=== PATIENT | female | born 1970 | race African-American/Black ===

== ENCOUNTER 2016-12-22 13:39 | Emergency (ER) | payer OTHER ==
[~2016-12-22] VITALS: Ht 154.9 cm; Wt 88.6 kg
[~2016-12-22 13:39] MED LIST: PRILOTC
[2016-12-22 13:45] VITALS: TEMP 98.7
[2016-12-22] MEDS ORDERED: [UNRECOGNIZED DRUG - REMARK] (13:45)
[2016-12-22 14:23] LABS: COLLECTION METHOD CLEAN CATCH
[2016-12-22 14:30] LABS: BASO % 0.3 % (0.0-2.0); EOS # 0.1 (0.0-0.7); EOS % 0.5 % (0-4.0); GRAN # 6.5 (1.4-6.5); HEMATOCRIT 40.4 % (37.0-47.0); HEMOGLOBIN 13.8 g/dl (12.5-16.0); LYMPH # 2.9 (1.2-3.4); LYMPH % 28.8 % (20.0-51.0); MEAN CELL VOLUME 89 fl (80.0-100.0); MEAN CORPUSCULAR HEMOGLOBIN 30 pg (27.0-31.0); MEAN CORPUSCULAR HGB CONC 34 g/dl (33.0-37.0); MEAN PLATELET VOLUME 10.5 fl (7.4-10.4); MONO # 0.5 (0.1-0.6); PLATELET COUNT 252 K/mm3 (130-400); RED BLOOD COUNT 4.56 M/mm3 (4.10-5.30)
[2016-12-22 14:34] LABS: PH 5 (5-8); SQUAMOUS EPITHELIAL 0-2 /hpf; URINE APPEARANCE Clear; URINE BACTERIA Rare /hpf; URINE BILIRUBIN Negative (NEGATIVE); URINE BLOOD Negative (NEGATIVE); URINE COLOR Straw; URINE GLUCOSE Negative (NEGATIVE); URINE KETONE Negative (NEGATIVE); URINE LEUKOCYTE ESTERASE Negative (NEGATIVE); URINE PROTEIN(semi-quant) Negative (NEGATIVE); URINE RBC None Seen /hpf; URINE UROBILINOGEN Negative (NEGATIVE); URINE WBC 0-2 /hpf
[2016-12-22 14:47] LABS: ADJUSTED CALCIUM 9.4 mg/dL (8.4-10.2); ALANINE AMINOTRANSFERASE 31 U/L (9-52); ALBUMIN 4.5 gm/dL (3.5-5.0); ALKALINE PHOSPHATASE 78 U/L (50-136); ANION GAP 12 mmol/L (7-16); BILIRUBIN,TOTAL 1.2 mg/dL (0.0-1.0); BLOOD UREA NITROGEN 12 mg/dL (7-17); CALCIUM 9.8 mg/dL (8.4-10.2); CARBON DIOXIDE 21 mmol/L (22-30); CHLORIDE 106 mmol/L (98-107); CREATININE, serum 0.61 mg/dL (0.52-1.25); GLUCOSE 108 mg/dL (74-106); LIPASE 69 U/L (23-300); POTASSIUM 3.8 mmol/L (3.4-5.0); SODIUM 139 mmol/L (137-145); TOTAL PROTEIN 8.4 gm/dL (6.4-8.2)
[2016-12-22 14:58] LABS: TROPONIN-I < 0.012 ng/mL (0.000-0.034)
[2016-12-22] MEDS ORDERED: BENTYL 20MG20 MG/TAB PO (15:44)
[2016-12-22 15:48] VITALS: BP 130/87; PULSE 79
== END 2016-12-22 16:03 | disposition home or self-care (01) ==
LOC: COL.ER 13:39
PROVIDERS: Emergency Medicine
DX: R10.84 Generalized abdominal pain (principal); K21.9 Gastro-esophageal reflux disease without esophagitis; K58.9 Irritable bowel syndrome, unspecified; Z90.711 Acquired absence of uterus with remaining cervical stump
CPT/HCPCS: J0500

== ENCOUNTER 2018-09-07 19:07 | Emergency (ER) | payer BC ==
[~2018-09-07] VITALS: Ht 154.9 cm; Wt 92.3 kg
[~2018-09-07 19:07] MED LIST changes: +BENTYL 20MG20 MG/TAB PO; +[UNRECOGNIZED DRUG - REMARK]
[2018-09-07 19:10] VITALS: TEMP 98
[2018-09-07 20:39] LABS: BASO % 0.1 % (0.0-2.0); EOS # 0.1 (0.0-0.7); EOS % 1.4 % (0-4.0); GRAN # 3.6 (1.4-6.5); GRAN % 50.2 % (42.2-75.2); HEMOGLOBIN 12.6 g/dl (12.5-16.0); LYMPH % 41.3 % (20.0-51.0); MEAN CELL VOLUME 91 fl (80.0-100.0); MEAN CORPUSCULAR HEMOGLOBIN 30 pg (27.0-31.0); MEAN CORPUSCULAR HGB CONC 33 g/dl (33.0-37.0); MONO # 0.5 (0.1-0.6); MONO % 6.9 % (1.7-9.3); PLATELET COUNT 205 K/mm3 (130-400); REDCELL DISTRIBUTION WIDTH-CV 13.2 % (11.5-14.5)
[2018-09-07 21:09] LABS: ALBUMIN 4.1 gm/dL (3.5-5.0); BILIRUBIN,TOTAL 0.5 mg/dL (0.0-1.0); CALCIUM 9.4 mg/dL (8.4-10.2); CREATININE, serum 0.67 (0.52-1.25); POTASSIUM 4.5 mmol/L (3.4-5.0); TOTAL PROTEIN 7.8 gm/dL (6.4-8.2)
[2018-09-07 22:30] VITALS: BP 126/85; PULSE 79
== END 2018-09-07 22:30 | disposition home or self-care (01) ==
LOC: COL.ER 19:07
PROVIDERS: Emergency Medicine
DX: M79.661 Pain in right lower leg (principal)

== ENCOUNTER → 2019-08-06 | Outpatient (CLI) | payer OTHER | LOC: MC.RAD 07:53 | DX: N63.20 Unspecified lump in the left breast, unspecified quadrant (principal) | CPT/HCPCS: G0279 ==

== ENCOUNTER → 2020-08-06 | Outpatient (CLI) | payer OTHER | LOC: MC.RAD 08:12 | DX: Z12.31 Encounter for screening mammogram for malignant neoplasm of breast (principal) ==

== ENCOUNTER 2021-04-06 15:25 | Emergency (ER) | payer OTHER ==
[~2021-04-06] VITALS: Ht 154.9 cm; Wt 92.6 kg
[2021-04-06 16:07] VITALS: TEMP 98.5
[2021-04-06 18:03] LABS: BASO % 0.5 % (0.0-2.0); EOS # 0.1 K/mm3 (0.0-0.7); EOS % 0.6 % (0.0-4.0); GRAN # 4.5 K/mm3 (1.4-6.5); GRAN % 55.7 % (42.2-75.2); HEMATOCRIT 40.6 % (37.0-47.0); HEMOGLOBIN 13.5 g/dl (12.5-16.0); LYMPH # 3.1 K/mm3 (1.2-3.4); LYMPH % 38.4 % (20.0-51.0); MEAN CELL VOLUME 89 fl (80.0-100.0); MEAN CORPUSCULAR HEMOGLOBIN 30 pg (27-31); MEAN CORPUSCULAR HGB CONC 33 g/dl (33.0-37.0); MEAN PLATELET VOLUME 10.9 fl (7.4-10.4); MONO # 0.4 K/mm3 (0.1-0.6); MONO % 4.6 % (1.7-9.3); PLATELET COUNT 229 K/mm3 (130-400); RED BLOOD COUNT 4.55 M/mm3 (4.10-5.30); REDCELL DISTRIBUTION WIDTH-CV 12.9 % (11.5-14.5)
[2021-04-06 18:20] LABS: ALANINE AMINOTRANSFERASE 20 U/L (0-55); ALBUMIN 4.2 gm/dL (3.5-5.0); ALKALINE PHOSPHATASE 83 U/L (40-150); ANION GAP 12 mmol/L (7-16); AST,SGOT 21 U/L (5-34); BILIRUBIN,TOTAL 0.9 mg/dL (0.2-1.2); BLOOD UREA NITROGEN 16 mg/dL (10-20); C-REACTIVE PROTEIN 0.02 mg/dL (0.00-0.50); CALCIUM 9.4 mg/dL (8.4-10.2); CARBON DIOXIDE 24 mmol/L (22-29); CHLORIDE 107 mmol/L (98-107); CREATININE, serum 0.74 mg/dL (0.57-1.11); GLUCOSE 120 mg/dL (70-99); SODIUM 143 mmol/L (136-145); TOTAL PROTEIN 8.1 gm/dL (6.2-8.1)
[2021-04-06 18:27] LABS: TROPONIN-I < 0.010 ng/mL (0.00-0.033)
[2021-04-06 18:27] LABS: COLLECTION METHOD CLEAN CATCH
[2021-04-06 18:34] LABS: MUCOUS Present (NOT PRESENT); PH 5 (5-8); SQUAMOUS EPITHELIAL 0-2 /hpf (0-10); URINE APPEARANCE Clear (CLEAR/HAZY); URINE BACTERIA None Seen /hpf (NONE SEEN); URINE BILIRUBIN Negative (NEGATIVE); URINE BLOOD Negative (NEGATIVE); URINE COLOR Straw (YELLOW); URINE GLUCOSE Negative (NEGATIVE); URINE KETONE Trace (NEGATIVE); URINE LEUKOCYTE ESTERASE Negative (NEGATIVE); URINE NITRATE Negative (NEGATIVE); URINE PROTEIN(semi-quant) Negative (NEGATIVE); URINE RBC 0-2 /hpf (0-2); URINE UROBILINOGEN Negative (NEGATIVE)
[2021-04-06 19:29] VITALS: BP 143/71; PULSE 73
== END 2021-04-06 19:42 | disposition home or self-care (01) ==
LOC: COL.ER 15:25
PROVIDERS: Nurse Practitioner Primary Care
DX: M79.622 Pain in left upper arm (principal); E11.9 Type 2 diabetes mellitus without complications